=== PATIENT | female | born 1955 | race Caucasian/White ===

== ENCOUNTER 2018-03-02 19:48 | Emergency (ER) | payer MEDICARE ==
[~2018-03-02] VITALS: Ht 149.9 cm; Wt 84.4 kg
[2018-03-02 19:54] VITALS: Ht 149.9 cm; Wt 84.4 kg
[2018-03-02 21:31] VITALS: BP 124/83
== END 2018-03-02 21:31 | disposition home or self-care (01) ==
LOC: ED 19:48
DX: T63.441A Toxic effect of venom of bees, accidental (unintentional), initial encounter (principal); Y92.89 Other specified places as the place of occurrence of the external cause
CPT/HCPCS: Q0163